=== PATIENT | female | born 1965 | race Caucasian/White ===

== ENCOUNTER → 2017-03-03 | Outpatient (CLI) | payer OTHER ==
[~2017-03-03] MED LIST: OPHTHALMIC IRRIG SOLUTION 120 ML ONE; PILOCARPINE 2% 15ML OPH ONE; PROPARACAINE 0.5% 15 ML OPH ONE
== END | disposition home or self-care (01) ==
LOC: RAD 11:11
PROVIDERS: ATTEND Ophthalmology
DX: H40.20X0 Unspecified primary angle-closure glaucoma, stage unspecified (principal)
CPT/HCPCS: 66761; Z7610

== ENCOUNTER → 2017-05-19 | Outpatient (CLI) | END | disposition home or self-care (01) ==

== ENCOUNTER 2017-06-14 08:22 | Day surgery (SDC) | END 2017-06-14 13:50 | disposition home or self-care (01) ==

== ENCOUNTER → 2017-07-06 | Outpatient (CLI) | END | disposition home or self-care (01) ==

== ENCOUNTER 2019-01-06 09:56 | Day surgery (SDC) | payer OTHER ==
[~2019-01-06] VITALS: Ht 154.9 cm; Wt 66.7 kg
[~2019-01-06 09:56] MED LIST changes: +IBUPROFEN; -OPHTHALMIC IRRIG SOLUTION 120 ML ONE; -PILOCARPINE 2% 15ML OPH ONE; -PROPARACAINE 0.5% 15 ML OPH ONE
[2019-01-06 11:29] VITALS: Ht 154.9 cm; Wt 66.7 kg
[2019-01-06 11:33] VITALS: BP 111/56; PULSE 61; RESP 18
[2019-01-06] MEDS ORDERED: FENTAnyl 50 MCG/ML VIAL ONE (12:25)
[2019-01-06] MEDS ORDERED: MIDAZOLAM 1 MG/ML 2 ML INJ ONE ×2 (12:25)
[2019-01-06 12:45] VITALS: BP 100/61; RESP 16
== END 2019-01-06 15:06 | disposition home or self-care (01) ==
LOC: GIL 09:56
PROVIDERS: ATTEND Internal Medicine Gastroenterology
DX: Z12.11 Encounter for screening for malignant neoplasm of colon (principal)
CPT/HCPCS: 45378; J2250; J3010; Z7610